=== PATIENT | female | born 1965 | race American Indian/Alaskan Native ===

== ENCOUNTER 2017-11-20 19:38 | Emergency (ER) | payer BC ==
[2017-11-20 21:35] LABS: Hematocrit 41.6 % (30.3-42.9); Hemoglobin 14.4 gm/dl (10.1-14.3); Mean Corpuscular HGB Conc 35 % (30-34); Mean Corpuscular Hemoglobin 32 pg (28-32); Mean Corpuscular Volume 93 fl (79-97); Platelet Count 289 K/mm3 (140-440); Red Blood Count 4.47 M/mm3 (3.65-5.03); Red Cell Distribution Width 13.2 % (13.2-15.2)
--- NOTE | 2017-11-20 21:46 | XRay Report ---
FINAL REPORT PROCEDURE: XR CHEST ROUTINE 2V TECHNIQUE: PA and lateral chest radiographs were obtained. CPT 48387 HISTORY: Shortness of breath COMPARISON: No prior studies are available for comparison. FINDINGS: Heart: Normal. Mediastinum/Vessels: Normal. Lungs/Pleural space: Normal. Bony thorax: No acute osseous abnormality. Other: There is a Junior pin overlying the upper airway on the PA exam, this is not seen in the lateral view. IMPRESSION: There is no evidence of an acute cardiopulmonary process..
[2017-11-20 21:47] LABS: BUN/Creatinine Ratio 13; Blood Urea Nitrogen 9 mg/dL (7-17); Calcium 8.7 mg/dL (8.4-10.2); Hemolysis Index 6
[2017-11-20 22:25] LABS: Basophils % (Manual) 0 % (0.0-1.8); Total Cells Counted 100
[2017-11-20 22:26] LABS: Platelet Estimate Consistent w Auto
[2017-11-21] MEDS ORDERED: ZOFRAN ORAL LIQ PO ONE (00:37)
[2017-11-21] MEDS ORDERED: PROVENTIL IH ONE (00:37)
[2017-11-21] MEDS ORDERED: K-DUR PO ONE (00:37)
[2017-11-21] MEDS ORDERED: TYLENOL PO ONE (00:37)
--- NOTE | 2017-11-21 00:38 | Emergency Department Report ---
ED General Adult HPI - General Chief complaint: Dyspnea/Respdistress Stated complaint: CP; SOB Time Seen by Provider: 11/21/17 00:22 Source: patient, RN notes reviewed, old records reviewed Mode of arrival: Ambulatory Limitations: No Limitations - History of Present Illness Initial comments: This is a 52-year-old female. I have evaluated her in the past. Her primary care doctor is Dr. Zamora. Past medical history includes hypertension and migraines. Patient presents to the ER with cough 2 weeks, mucus production, left-sided lateral thoracic pain, chest wall pain, breast pain with coughing. She reports a few episodes of posttussive emesis. The pain is sharp. It increases with palpation. It decreases with rest. There are no DVT or pulmonary embolus risk factors. -: Gradual, week(s) Location: chest Radiation: back, other (anterior chest wall) Quality: aching Consistency: intermittent Improves with: rest Worsens with: movement Associated Symptoms: cough, malaise, nausea/vomiting, shortness of breath. denies: confusion, diaphoresis, fever/chills, headaches, loss of appetite, rash , seizure, syncope, weakness - Related Data Home Medications Medication Instructions Recorded Confirmed Last Taken amLODIPine [Norvasc] 10 mg PO DAILY 10/06/15 12/10/15 12/10/15 Previous Rx's Medication Instructions Recorded Last Taken Type Diphenhydramine HCl [Benadryl 25 mg PO TID PRN #15 tablet 12/11/15 Unknown Rx Allergy TAB] hydrALAZINE [Apresoline TAB] 25 mg PO TID #90 tablet 12/11/15 Unknown Rx predniSONE [Deltasone] 10 mg PO QDAY #7 tab 12/11/15 Unknown Rx Ciprofloxacin HCl [Ciprofloxacin 500 mg PO BID #10 tablet 05/04/16 Unknown Rx TAB] Acetaminophen [Tylenol Arthritis] 650 mg PO Q6HR PRN #30 tablet.er 11/21/17 Unknown Rx Albuterol Sulfate [Proair 90 mcg IH Q4HR PRN #2 aer.pow.ba 11/21/17 Unknown Rx Respiclick] Benzonatate [Tessalon Perles] 100 mg PO Q8HR PRN #30 capsule 11/21/17 Unknown Rx Fluticasone [Flonase] 1 spray NS QDAY #1 bottle 11/21/17 Unknown Rx Ondansetron [Zofran Odt] 4 mg PO Q8HR PRN #20 tab.rapdis 11/21/17 Unknown Rx Allergies Allergy/AdvReac Type Severity Reaction Status Date / Time RITO Inhibitors AdvReac Severe Swelling Verified 12/10/15 06:08 celecoxib [From Celebrex] AdvReac Swelling Verified 10/06/15 13:17 codeine AdvReac Rash Verified 10/06/15 13:17 ED Review of Systems ROS: Stated complaint: CP; SOB Other details as noted in HPI Comment: All other systems reviewed and negative ED Past Medical Hx - Past Medical History Previous Medical History?: Yes Hx Hypertension: Yes Hx Congestive Heart Failure: No Hx Diabetes: No Hx Asthma: No Hx COPD: No Additional medical history: "ADRENAL MASS" - Surgical History Past Surgical History?: Yes Additional Surgical History: BONE CYST RIGHT SHOULDER 2005. PARTIAL HYSTERECTOMY ?1999. HEMORRHOIDECTOMY ? - Social History Smoking Status: Never Smoker Substance Use Type: None - Medications Home Medications: Home Medications Medication Instructions Recorded Confirmed Last Taken Type amLODIPine [Norvasc] 10 mg PO DAILY 10/06/15 12/10/15 12/10/15 History Diphenhydramine HCl [Benadryl 25 mg PO TID PRN #15 tablet 12/11/15 Unknown Rx Allergy TAB] hydrALAZINE [Apresoline TAB] 25 mg PO TID #90 tablet 12/11/15 Unknown Rx predniSONE [Deltasone] 10 mg PO QDAY #7 tab 12/11/15 Unknown Rx Ciprofloxacin HCl [Ciprofloxacin 500 mg PO BID #10 tablet 05/04/16 Unknown Rx TAB] Acetaminophen [Tylenol Arthritis] 650 mg PO Q6HR PRN #30 tablet.er 11/21/17 Unknown Rx Albuterol Sulfate [Proair 90 mcg IH Q4HR PRN #2 aer.pow.ba 11/21/17 Unknown Rx Respiclick] Benzonatate [Tessalon Perles] 100 mg PO Q8HR PRN #30 capsule 11/21/17 Unknown Rx Fluticasone [Flonase] 1 spray NS QDAY #1 bottle 11/21/17 Unknown Rx Ondansetron [Zofran Odt] 4 mg PO Q8HR PRN #20 tab.rapdis 11/21/17 Unknown Rx ED Physical Exam - General Limitations: No Limitations General appearance: alert, in no apparent distress - Head Head exam: Present: atraumatic, normocephalic - Eye Eye exam: Present: normal appearance, EOMI. Absent: nystagmus - ENT ENT exam: Present: normal exam, normal orophraynx, mucous membranes moist, normal external ear exam - Neck Neck exam: Present: normal inspection, full ROM - Respiratory Respiratory exam: Present: normal lung sounds bilaterally, chest wall tenderness (there is reproducible lateral and anterior chest wall tenderness. Bilateral breast exam within normal limits with no redness, pus or streaking. There is no evidence of abscess. Escorted by nurse by GRADY WAN). Absent: respiratory distress - Cardiovascular Cardiovascular Exam: Present: regular rate, normal rhythm, normal heart sounds. Absent: bradycardia, tachycardia, irregular rhythm, systolic murmur, diastolic murmur, rubs, gallop - GI/Abdominal GI/Abdominal exam: Present: soft, normal bowel sounds. Absent: distended, tenderness, guarding, rebound, rigid, pulsatile mass - Extremities Exam Extremities exam: Present: normal inspection, full ROM, normal capillary refill. Absent: pedal edema, joint swelling, calf tenderness - Back Exam Back exam: Present: normal inspection, full ROM. Absent: tenderness, CVA tenderness (R), paraspinal tenderness, vertebral tenderness - Neurological Exam Neurological exam: Present: alert, oriented X3, CN II-XII intact, normal gait, other (Extraocular movements intact. Tongue midline. No facial droop. Facial sensation intact to light touch in the V1, V2, V3 distribution bilaterally. 5 and 5 strength in 4 extremities.. Sensation is intact to light touch in 4 extremities.). Absent: motor sensory deficit - Psychiatric Psychiatric exam: Present: normal affect, normal mood - Skin Skin exam: Present: warm, dry, intact, normal color. Absent: rash ED Course Vital Signs 11/20/17 11/21/17 11/21/17 21:12 01:01 01:07 Temperature 98.7 F Pulse Rate 122 H 74 Pulse Rate [ 70 Anterior Bilateral] Respiratory 16 18 Rate Respiratory 18 Rate [Anterior Bilateral] Blood Pressure 145/104 Blood Pressure 129/88 [Right] O2 Sat by Pulse 98 100 Oximetry 11/21/17 01:15 Temperature Pulse Rate Pulse Rate [ 68 Anterior Bilateral] Respiratory Rate Respiratory 18 Rate [Anterior Bilateral] Blood Pressure Blood Pressure [Right] O2 Sat by Pulse Oximetry ED Medical Decision Making - Lab Data Result diagrams: 11/20/17 21:22 11/20/17 21:22 Vital Signs 11/20/17 11/21/17 11/21/17 21:12 01:01 01:07 Temperature 98.7 F Pulse Rate 122 H 74 Pulse Rate [ 70 Anterior Bilateral] Respiratory 16 18 Rate Respiratory 18 Rate [Anterior Bilateral] Blood Pressure 145/104 Blood Pressure 129/88 [Right] O2 Sat by Pulse 98 100 Oximetry 11/21/17 01:15 Temperature Pulse Rate Pulse Rate [ 68 Anterior Bilateral] Respiratory Rate Respiratory 18 Rate [Anterior Bilateral] Blood Pressure Blood Pressure [Right] O2 Sat by Pulse Oximetry Lab Results 11/20/17 11/20/17 11/21/17 Range/Units 21:22 21:22 00:40 WBC 9.6 (4.5-11.0) K/mm3 RBC 4.47 (3.65-5.03) M/mm3 Hgb 14.4 H (10.1-14.3) gm/dl Hct 41.6 (30.3-42.9) % MCV 93 (79-97) fl MCH 32 (28-32) pg MCHC 35 H (30-34) % RDW 13.2 (13.2-15.2) % Plt Count 289 (140-440) K/mm3 Add Manual Diff Complete Total Counted 100 Seg Neuts % (Manual) 62.0 (40.0-70.0) % Band Neutrophils % 0 % Lymphocytes % (Manual) 32.0 (13.4-35.0) % Reactive Lymphs % (Man) 0 % Monocytes % (Manual) 3.0 (0.0-7.3) % Eosinophils % (Manual) 3.0 (0.0-4.3) % Basophils % (Manual) 0 (0.0-1.8) % Metamyelocytes % 0 % Myelocytes % 0 % Promyelocytes % 0 % Blast Cells % 0 % Nucleated RBC % Not Reportable Seg Neutrophils # Man 6.0 (1.8-7.7) K/mm3 Band Neutrophils # 0.0 K/mm3 Lymphocytes # (Manual) 3.1 (1.2-5.4) K/mm3 Abs React Lymphs (Man) 0.0 K/mm3 Monocytes # (Manual) 0.3 (0.0-0.8) K/mm3 Eosinophils # (Manual) 0.3 (0.0-0.4) K/mm3 Basophils # (Manual) 0.0 (0.0-0.1) K/mm3 Metamyelocytes # 0.0 K/mm3 Myelocytes # 0.0 K/mm3 Promyelocytes # 0.0 K/mm3 Blast Cells # 0.0 K/mm3 WBC Morphology Not Reportable Hypersegmented Neuts Not Reportable Hyposegmented Neuts Not Reportable Hypogranular Neuts Not Reportable Smudge Cells Not Reportable Toxic Granulation Not Reportable Toxic Vacuolation Not Reportable Dohle Bodies Not Reportable Pelger-Huet Anomaly Not Reportable Kaleb Rods Not Reportable Platelet Estimate Consistent w auto Clumped Platelets Not Reportable Plt Clumps, EDTA Not Reportable Large Platelets Not Reportable Giant Platelets Not Reportable Platelet Satelliting Not Reportable Plt Morphology Comment Not Reportable RBC Morphology Not Reportable Dimorphic RBCs Not Reportable Polychromasia Not Reportable Hypochromasia Not Reportable Poikilocytosis Not Reportable Anisocytosis Not Reportable Microcytosis Not Reportable Macrocytosis Not Reportable Spherocytes Not Reportable Pappenheimer Bodies Not Reportable Sickle Cells Not Reportable Target Cells Not Reportable Tear Drop Cells Not Reportable Ovalocytes Not Reportable Helmet Cells Not Reportable [place] Bodies Not Reportable [place] Rings Not Reportable Damien Cells Not Reportable Bite Cells Not Reportable Crenated Cell Not Reportable Elliptocytes Not Reportable Acanthocytes (Spur) Not Reportable Rouleaux Not Reportable Hemoglobin C Crystals Not Reportable Schistocytes Not Reportable Malaria parasites Not Reportable Gerald Bodies Not Reportable Hem Pathologist Commnt No Sodium 139 (137-145) mmol/L Potassium 3.2 L (3.6-5.0) mmol/L Chloride 100.3 (98-107) mmol/L Carbon Dioxide 29 (22-30) mmol/L Anion Gap 13 mmol/L BUN 9 (7-17) mg/dL Creatinine 0.7 (0.7-1.2) mg/dL Estimated GFR > 60 ml/min BUN/Creatinine Ratio 13 % Glucose 115 H (65-100) mg/dL Calcium 8.7 (8.4-10.2) mg/dL Total Creatine Kinase 390 H (30-135) units/L Troponin T < 0.010 (0.00-0.029) ng/mL - EKG Data Interpretation: no acute changes 11/21/17 01:41 Sinus tachycardia, 126 bpm, normal axis, QTC prolonged, 497 ms, poor R wave progression, appears unchanged when compared to prior EKG from 10/06/2015. It is not morphologically consistent with a STEMI - Radiology Data Radiology results: report reviewed, image reviewed X-ray of the chest is negative for acute disease - Medical Decision Making Differential diagnosis, including not limited to: Bronchitis, pneumonia, costochondritis, pericarditis, myocarditis, acute coronary syndrome Assessment and plan: 52-year-old female with 2 weeks of cough, chest wall pain, posttussive emesis, no pulmonary embolus or DVT risk factors, low risk by well' s criteria, low risk by YOJANA score, low risk by heart score. Has reproducible chest wall tenderness, unchanged EKG when compared to prior. She is medicated appropriately. Symptoms present for 2 weeks, therefore as per the [employer] clinical policy, myocardial infarction May BE ruled out with one set of troponin/cardiac enzymes. Patient observed in the ER without clinical decompensation, unfortunately she is allergic to NSAIDs, And will be discharged with appropriate symptomatic therapy. Patient counseled to expect symptoms to last for the next few weeks. Critical care attestation.: If time is entered above; I have spent that time in minutes in the direct care of this critically ill patient, excluding procedure time. ED Disposition Clinical Impression: Chest wall pain, Cough Disposition: -01 TO HOME OR SELFCARE Is pt being admited?: No Does the pt Need Aspirin: No Condition: Good Instructions: Chest Pain (ED), Costochondritis (ED) Additional Instructions: Take medications as needed/directed. Symptoms will likely last for the next few weeks. Follow-up with the primary care doctor within the next 2-3 weeks. Return to the ER right away with new pain, worsened pain, migration of pain, fevers, chills, confusion, projectile vomiting, change in mental status, inability to tolerate liquid feedings. Referrals: SILVANO ORNELAS MD [Primary Care Provider] - 3-5 Days
[2017-11-21 01:02] VITALS: BP 129/88
== END 2017-11-21 02:04 | disposition home or self-care (01) ==
LOC: ED 19:38
DX: R07.89 Other chest pain (principal); I10 Essential (primary) hypertension; G43.909 Migraine, unspecified, not intractable, without status migrainosus; R11.2 Nausea with vomiting, unspecified; Z88.5 Allergy status to narcotic agent; Z88.8 Allergy status to other drugs, medicaments and biological substances; Z90.711 Acquired absence of uterus with remaining cervical stump
CPT/HCPCS: 36415; 71046; 80048; 82550; 84484; 85007; 85025; 93005; 93010; 94640; 99284; Q0162

== ENCOUNTER 2018-10-31 14:07 | Outpatient (CLI) | payer BC ==
--- NOTE | 2018-10-31 16:04 | Ultrasound Report ---
RIGHT DIGITAL DIAGNOSTIC MAMMOGRAM and RIGHT BREAST ULTRASOUND: 10/31/18 14:07:00 CLINICAL: Recalled for asymmetries. COMPARISON:09/19/18 screening FINDINGS: Additional mammographic views of the right breast were performed. A single circumscribed density persists in the upper outer breast and a single circumscribed density persists in the lower inner breast. Ultrasound of the lower inner right breast demonstrated a benign cyst at 4 o'clock 3.5 cm from the nipple. It measures 7 x 7 x 3 mm and correlates with the mammographic density. Ultrasound of the upper outer right breast demonstrated an round slightly irregular relatively anechoic mass at 10 o'clock 4 cm from the nipple. It demonstrates mild shadowing, correlates with the mammographic density and measures8 x 8 x 8 mm. The second round slightly irregular isoechoic solid mass versus cyst with internal echoes at 10 o'clock 7 cm from the nipple measures 4 x 4 by 5 mm. It demonstrates posterior enhancement. IMPRESSION: Two suspicious complex cyst versus solid masses at 10 o'clock 4 cm from the nipple and 7 cm from the nipple. Recommend ultrasound-guided aspiration/biopsy of these 2 lesions. BI-RADS CATEGORY: 4--Suspicious I discussed the findings and the recommendation for needle aspiration/biopsy of these 2 lesions with the patient at the time of the examination. ACR BI-RADS MAMMOGRAPHIC CODES: 0 = Needs additional imaging evaluation; 1 = Negative; 2 = Benign; 3 = Probably benign; 4 = Suspicious; 5 = Malignant; 6 = Known biopsy-proven malignancy COMMENT: 1. Dense breast tissue, i.e., adenosis, fibrocystic changes, etc., may obscure an underlying neoplasm. 2. Approximately 10% of cancers are not detected with mammography. 3. A negative mammography report should not delay biopsy if a clinically suspicious mass is present. COMMENT: Patient follow-up letters are generated via our [employer] application.
== END 2018-10-31 14:08 | disposition home or self-care (01) ==
LOC: SPVWC 14:07
PROVIDERS: ATTEND Hospitalist
DX: N63.14 Unspecified lump in the right breast, lower inner quadrant (principal); I10 Essential (primary) hypertension; Z90.710 Acquired absence of both cervix and uterus

== ENCOUNTER 2018-11-14 12:52 | Outpatient (CLI) | payer BC ==
--- NOTE | 2018-11-14 14:28 | Mammography Report ---
RIGHT DIGITAL DIAGNOSTIC MAMMOGRAM: 11/14/18 12:52:00 CLINICAL: For clip placement immediately status post ultrasound biopsy. COMPARISON:10/31/18 FINDINGS: A biopsy clip is now identified at 9 o'clock and correlates with today's biopsied lesion which demonstrated partial collapse and is less dense on the mammogram. IMPRESSION: Concordant clip placement status post ultrasound biopsy of a complex cyst. Pathology pending.
--- NOTE | 2018-11-14 15:13 | Ultrasound Report ---
ULTRASOUND GUIDED RIGHT CYST ASPIRATION AND ULTRASOUND GUIDED NEEDLE CORE BIOPSY RIGHT BREAST WITH CLIP PLACEMENT: 11/14/18 13:00:00 CLINICAL: Complex cysts versus solid masses at 10 o'clock 7 cm from the nipple and at 10 o'clock 4 cm from the nipple. COMPARISON :10/31/18 FINDINGS: The procedure was explained to the patient and informed consent was obtained. Ultrasound demonstrated the 2 lesions at 10 o'clock. I marked the breast with a felt tip marker and a time out was called. Attention was given to the smaller lesion at 10 o'clock 7 cm from the nipple. The skin was prepped with Betadine and anesthetized with 1% lidocaine. The 4 mm lesion show complete collapse after puncture and aspiration with a 22-gauge spinal needle. Attention was then given to the lesion at 10 o'clock 4 cm from the nipple. Additional 1% lidocaine was injected for skin anesthesia. Needle core biopsy was performed through a tiny dermatotomy using ultrasound guidance, 2% lidocaine with epinephrine for deep anesthesia and a 14-gauge Achieve biopsy device. 3 cores were obtained and placed in formalin. This mass showed partial collapse with a biopsy and the tissue samples were very dark. A clip was deployed within the lesion The patient tolerated the procedure well and there were no apparent complications. Hemostasis was achieved with minimal pressure and a sterile dressing was applied. A two view mammogram demonstrated satisfactory placement of the clip. She left the department in good condition and was given instructions for wound care and followup. IMPRESSION: Uncomplicated ultrasound guided needle core biopsy with clip placement right breast an uncomplicated cyst aspiration right breast. The larger lesion appears to be a benign chocolate cyst which demonstrated partial collapse. The smaller lesion at 10 o'clock showed complete collapse with aspiration consistent with a benign cyst.
== END 2018-11-14 12:53 | disposition home or self-care (01) ==
LOC: SPVWC 12:52
PROVIDERS: ATTEND Hospitalist
DX: N60.11 Diffuse cystic mastopathy of right breast (principal); N60.01 Solitary cyst of right breast; I10 Essential (primary) hypertension; Z88.5 Allergy status to narcotic agent; Z79.899 Other long term (current) drug therapy; Z90.710 Acquired absence of both cervix and uterus; Z98.890 Other specified postprocedural states; Z88.8 Allergy status to other drugs, medicaments and biological substances
CPT/HCPCS: 88305